=== PATIENT | female | born 1995 | race Caucasian/White ===

== ENCOUNTER 2021-09-26 13:13 | Emergency (ER) | payer OTHER, SELFPAY ==
--- NOTE | ~2021-09-26 | US_ITS ---
EXAMINATION: US OB <=14 wk fetus w TV EXAM DATE: 09/26/2021 15:36 INDICATION: Vaginal bleed in spotting 1st trimester. TECHNIQUE: Pelvic obstetrical transabdominal sonogram was performed by a technologist. There are mu ltiple grayscale and Doppler images available for interpretation. There are no earlier studies of th is gestation for comparison. FINDINGS: Uterus measures 10.8 x 6.5 x 5.6 cm, with intrauterine gestation sac identified, probable identification of a yolk sac. No pole is identified at this time. Mean sac diameter of 1.2 cm c orresponds to estimated gestational age 5 weeks 2 days. There is small subchorionic hematoma measurin g about 1.5 cm diameter by 6 mm in thickness. Right adnexa: The right ovary is normal in size and morphology. Left adnexa: The left ovary is normal in size and morphology. IMPRESSION: Early intrauterine gestation sac with small subchorionic hemorrhage. Cannot confirm viabi lity at this time. Reviewed, dictated and finalized at location [facility] IMPRESSION: Early intrauterine gestation sac with small subchorionic hemorrhage . Cannot confirm viability at this time.
[2021-09-26 13:17] VITALS: BP 151/90; PULSE 86; RESP 16; TEMP 36.1; O2SAT 100
--- NOTE | 2021-09-26 13:39 | ED.GENADULT ---
HPI - General Adult General Chief complaint: Vaginal Bleeding Stated complaint: 6 wks preg vag spotting Time Seen by Provider: 09/26/21 13:25 Source: patient and RN notes reviewed History of Present Illness HPI narrative: Patient is a 26 y/o female complaining of vaginal bleeding since yesterday. She describes it as light pink spotting. She did not notice any clots or tissue. There is no alleviating or exacerbating factor. She has no pain. She states that she is approximately 6 week and her LMP was 08/11/21. Review of Systems Constitutional: Constitutional: Denies chills, Denies fever(s), Denies headache(s) and Denies weakness Eyes: Eyes: Denies blurry vision ENT: Denies headache(s) and Denies neck pain Cardiovascular: Cardiovascular: Denies chest pain and Denies dyspnea Respiratory: Respiratory: Denies cough and Denies dyspnea Gastrointestinal: Gastrointestinal: Denies abdominal pain, Denies diarrhea, Denies nausea and Denies vomiting Genitourinary: Genitourinary: Reports abnormal vaginal bleeding, Denies hematuria and Denies dysuria Musculoskeletal: Musculoskeletal: Denies back pain and Denies neck pain Neurologic: Denies headache(s) and Denies weakness Exam Const: General: no acute distress and well developed Nutritional Appearance: obese Orientation/consciousness: oriented to person, oriented to place, oriented to time and patient oriented x3 HENMT: Head: normocephalic Ears: external ears normal General nose exam: Normal external nose present Eyes: General: appearance normal, both eyes and all related structures Conjunctivae: conjunctivae normal Neck: Neck: normal visual inspection and full ROM Chest: Chest palpation & inspection: normal inspection of the chest and no tenderness Resp: Effort & Inspection: normal respiratory effort Auscultation: clear to auscultation bilaterally Cardio: Rate: regular rate Rhythm: regular rhythm GI: GI Palp: No abdominal tenderness and Yes Soft to palpation : General: Yes bimanual renal exam normal bilaterally External Female Exam: normal external appearance Speculum Exam - Vagina: normal appearance of the vagina and No vaginal bleeding Speculum Exam - Cervix: normal appearance of the cervix Skin: General skin exam: normal color and turgor normal Neuro: General: oriented to person, oriented to place, oriented to time and patient oriented x3 Cognition (Neuro): normal cognition Extrem: General: normal to inspection, full ROM and no pedal edema Psych: Appearance: grossly normal Mental Status: mental status grossly normal Affect: normal affect Course Vital Signs Vital signs: Vital Signs Temperature 36.1 C L 09/26/21 13:17 Pulse Rate 86 09/26/21 13:17 Respiratory Rate 16 09/26/21 13:17 Blood Pressure 151/90 H 09/26/21 13:17 Pulse Oximetry 100 09/26/21 13:17 Temperature 36.1 C L 09/26/21 13:17 Pulse Rate 76 09/26/21 16:37 Respiratory Rate 18 09/26/21 16:37 Blood Pressure 132/78 09/26/21 16:37 Pulse Oximetry 99 09/26/21 16:37 Medical Decision Making Vital Signs Vital Signs: Vital Signs Temperature 36.1 C L 09/26/21 13:17 Pulse Rate 86 09/26/21 13:17 Respiratory Rate 16 09/26/21 13:17 Blood Pressure 151/90 H 09/26/21 13:17 Pulse Oximetry 100 09/26/21 13:17 Temperature 36.1 C L 09/26/21 13:17 Pulse Rate 76 09/26/21 16:37 Respiratory Rate 18 09/26/21 16:37 Blood Pressure 132/78 09/26/21 16:37 Pulse Oximetry 99 09/26/21 16:37 Lab Data Result diagrams: 09/26/21 13:38 09/26/21 13:38 Labs: Lab Results 09/26/21 09/26/21 09/26/21 Range/Units 13:38 13:38 13:38 WBC 9.4 (4.5-10.0) K/mm3 RBC 4.69 (4.2-5.4) M/mm3 Hgb 13.1 (12.0-15.0) g/dL Hct 40.3 (37.0-47.0) % MCV 85.9 (80-100) fl MCH 27.9 (26-34) pg MCHC 32.5 (32-36) g/dl RDW 14.6 H (11.5-14.5) % Plt Count 313 (150-375) k/mm3 MPV 8.7 (7.4-10.4) fl
[2021-09-26 13:49] LABS: Basophils Absolute Auto 0.1 K/mm3 (0.0-0.1); Basophils Percent Auto 0.7 % (0.2-1.2); Eosinophils Absolute Auto 0.2 K/mm3 (0-0.3); Hematocrit 40.3 % (37.0-47.0); Hemoglobin 13.1 g/dL (12.0-15.0); Immature Granulocyte Absolute 0.03 K/mm3 (0.00-0.031); Immature Granulocyte Percent A 0.3 % (0-0.5); Lymphocytes Absolute Auto 1.97 K/mm3 (0.9-3.2); Mean Corpuscular HGB Conc 32.5 g/dl (32-36); Mean Corpuscular Hemoglobin 27.9 pg (26-34); Mean Corpuscular Volume 85.9 fl (80-100); Mean Platelet Volume 8.7 fl (7.4-10.4); Monocytes Absolute Auto 0.5 K/mm3 (0.1-0.6); Monocytes Percent Auto 5.6 % (2.6-8.5); Neutrophils Absolute Auto 6.6 K/mm3 (1.3-6.7); Neutrophils Percent Auto 70.4 % (45.5-73.1); Platelet Count Result 313 k/mm3 (150-375); Red Blood Count 4.69 M/mm3 (4.2-5.4); Red Cell Distribution Width 14.6 % (11.5-14.5); White Blood Count 9.4 K/mm3 (4.5-10.0)
[2021-09-26 13:56] LABS: Add Urine Microscopic? YES; Appearance Urine Clear (Clear); Bilirubin Urine Negative (Negative); Blood Urine 2+ (Negative); Color Urine Yellow (Yellow); Glucose Urine UA Negative (Negative); Ketones Urine Negative (Negative); Leukocyte Esterase Ur 1+ LEU/UL (Negative); Mucus Urine Few /lpf; Nitrate Urine Negative (Negative); Protein Urine Negative (Negative); Squamous Epithelial Cell Urine Many /hpf (Few); Urobilinogen Urine Negative mg/dL (<2.0); WBC Urine 21-30 /hpf
[2021-09-26 14:05] LABS: Alanine Aminotransferase 17 U/L (4-35); Albumin Level 4.3 g/dL (3.5-5.1); Alkaline Phosphatase 78 U/L (38-126); Anion Gap 9 mmol/L (8-16); Aspartate Amino Transferase 22 U/L (14-36); Bilirubin,Total 0.7 mg/dL (0.2-1.3); Blood Urea Nitrogen 9 mg/dL (7-17); Calcium 9.2 mg/dL (8.4-10.2); Carbon Dioxide 27 mmol/L (22-30); Chloride 102 mmol/L (98-107); Estimated CRCL calculation 137 ml/min; Estimated Glomerular Filt Rate > 60; Glucose 91 mg/dL (65-110); Potassium 3.6 mmol/L (3.4-5.0); Sodium 138 mmol/L (137-145)
--- NOTE | 2021-09-26 14:45 | PC.NURSE ---
assisted dr Caraballo with pelvic exam
[2021-09-26 16:37] VITALS: BP 132/78; PULSE 76; RESP 18; O2SAT 99
== END 2021-09-26 16:38 | disposition home or self-care (01) ==
PROVIDERS: Emergency Provider Emergency Medicine; PCP Physician Assistant
DX: O20.0 Threatened abortion (principal); Z3A.01 Less than 8 weeks gestation of pregnancy
CPT/HCPCS: 36415; 76801; 76817; 80053; 81001; 84702; 85025; 86900; 86901; 87086; 87088; 99284

== ENCOUNTER 2021-10-03 21:59 | Emergency (ER) | payer OTHER, SELFPAY ==
[2021-10-03 22:13] VITALS: BP 164/102; PULSE 107; RESP 20; TEMP 36.2; O2SAT 98
--- NOTE | 2021-10-03 23:23 | PC.NURSE ---
Patient came to desk, stated I am leaving, I will come back in the morning. Patient informed of risks of leaving, she stated she will come back in the morning.
== END 2021-10-03 23:35 | disposition left against medical advice (07) ==
LOC: ANHED 23:25
PROVIDERS: PCP Physician Assistant
DX: O26.851 Spotting complicating pregnancy, first trimester (principal); Z3A.08 8 weeks gestation of pregnancy
CPT/HCPCS: 99199

== ENCOUNTER 2021-10-07 16:55 | Emergency (ER) | payer OTHER, SELFPAY ==
[2021-10-07 17:02] VITALS: BP 151/107; PULSE 84; RESP 16; TEMP 36.4; O2SAT 99
[2021-10-07 20:44] VITALS: BP 151/80; PULSE 93; RESP 18; TEMP 36.2; O2SAT 100
--- NOTE | 2021-10-07 22:24 | ED.GENADULT ---
HPI - General Adult General Chief complaint: Vaginal Bleeding Stated complaint: vaginal bleeding Time Seen by Provider: 10/07/21 22:15 History of Present Illness HPI narrative: Patient is a 26-year-old female presents to emergency department with chief complaint of vaginal bleeding. The patient reports she was seen in the emergency department on the after she was having some spotting and she was currently early at that time the patient had an ultrasound that documented an intrauterine and also had blood test that shows that she is Rh+. The patient states that she has been doing okay noticed today that she started passing some clots but was only a small amount and not requiring her to even use a pad. The patient states she called her OB who recommended that she come to the emergency department for evaluation. Patient denies pain. Related Data Home Medications Medication Instructions Recorded Confirmed PNV cmb#95-ferrous fumarate-FA tablet PO 10/03/21 [] escitalopram oxalate mg 10/03/21 Allergies Allergy/AdvReac Type Severity Reaction Status Date / Time Latex, Natural Rubber Allergy Rash Verified 10/07/21 22:16 Review of Systems Review of Systems: A 10 system review of systems was completed on the patient and is negative except for what is stated in the HPI. Nursing and ancillary documentation was reviewed. Exam Narrative: GENERAL: Well-appearing, well-nourished, and in no acute distress. HEAD: Normocephalic, atraumatic. EYES: PERRLA and EOMI. ENT: Nares clear, no rhinorrhea or epistaxis. Mucous membranes moist. NECK: Supple. CHEST: Clear to auscultation. No respiratory distress. HEART: Regular rate and rhythm. No murmur heard. Normal peripheral pulses. ABDOMEN: Soft, nontender, nondistended, normal active bowel sounds. EXTREMITIES: Normal range of motion. No edema. SKIN: Warm, dry, no rash. NEURO: No focal deficits. Alert and oriented x3. PSYCH: Normal mood and affect. Course Course Emergency Course: Patient has a documented intrauterine from earlier this month. At this time there is no concern for ectopic . Patient should follow-up with her primary care physician at this time emergent ultrasound is not required. Vital Signs Vital signs: Vital Signs Temperature 36.4 C L 10/07/21 17:02 Pulse Rate 84 10/07/21 17:02 Respiratory Rate 16 10/07/21 17:02 Blood Pressure 151/107 H 10/07/21 17:02 Pulse Oximetry 99 10/07/21 17:02 Temperature 36.2 C L 10/07/21 20:44 Pulse Rate 93 10/07/21 20:44 Respiratory Rate 18 10/07/21 20:44 Blood Pressure 151/80 H 10/07/21 20:44 Pulse Oximetry 100 10/07/21 20:44 Medical Decision Making Vital Signs Vital Signs: Vital Signs Temperature 36.4 C L 10/07/21 17:02 Pulse Rate 84 10/07/21 17:02 Respiratory Rate 16 10/07/21 17:02 Blood Pressure 151/107 H 10/07/21 17:02 Pulse Oximetry 99 10/07/21 17:02 Temperature 36.2 C L 10/07/21 20:44 Pulse Rate 93 10/07/21 20:44 Respiratory Rate 18 10/07/21 20:44 Blood Pressure 151/80 H 10/07/21 20:44 Pulse Oximetry 100 10/07/21 20:44 Lab Data Result diagrams: 10/07/21 22:46 10/07/21 22:46 Labs: Lab Results 10/07/21 10/07/21 Range/Units 22:46 22:46 WBC 11.3 H (4.5-10.0) K/mm3 RBC 4.80 (4.2-5.4) M/mm3 Hgb 13.2 (12.0-15.0) g/dL Hct 40.2 (37.0-47.0) % MCV 83.8 (80-100) fl MCH 27.5 (26-34) pg MCHC 32.8 (32-36) g/dl RDW 14.1 (11.5-14.5) % Plt Count 298 (150-375) k/mm3 MPV 9.0 (7.4-10.4) fl Immature Gran % (Auto) 0.3 (0-0.5) % Neut % (Auto) 62.3 (45.5-73.1) % Lymph % (Auto) 28.9 (18.3-44.2) % [place] % (Auto) 5.0 (2.6-8.5) % Eos % (Auto) 3.1 (0-4.4) % Baso % (Auto) 0.4 (0.2-1.2) % Lymph # (Auto) 3.26 H (0.9-3.2) K/mm3 [place] # (Auto) 0.6 (0.1-0.6) K/mm3 Eos # (Auto) 0.4 H (0-0.3) K/mm3 Baso # (Auto) 0.1
[2021-10-07 22:52] LABS: Basophils Absolute Auto 0.1 K/mm3 (0.0-0.1); Basophils Percent Auto 0.4 % (0.2-1.2); Eosinophils Absolute Auto 0.4 K/mm3 (0-0.3); Eosinophils Percent Auto 3.1 % (0-4.4); Hematocrit 40.2 % (37.0-47.0); Hemoglobin 13.2 g/dL (12.0-15.0); Immature Granulocyte Absolute 0.03 K/mm3 (0.00-0.031); Immature Granulocyte Percent A 0.3 % (0-0.5); Lymphocytes Absolute Auto 3.26 K/mm3 (0.9-3.2); Lymphocytes Percent Auto 28.9 % (18.3-44.2); Mean Corpuscular HGB Conc 32.8 g/dl (32-36); Mean Corpuscular Hemoglobin 27.5 pg (26-34); Mean Corpuscular Volume 83.8 fl (80-100); Monocytes Absolute Auto 0.6 K/mm3 (0.1-0.6); Neutrophils Percent Auto 62.3 % (45.5-73.1); Platelet Count Result 298 k/mm3 (150-375); Red Cell Distribution Width 14.1 % (11.5-14.5); White Blood Count 11.3 K/mm3 (4.5-10.0)
[2021-10-07 23:01] LABS: Anion Gap 9 mmol/L (8-16); Blood Urea Nitrogen 12 mg/dL (7-17); Calcium 9.6 mg/dL (8.4-10.2); Carbon Dioxide 25 mmol/L (22-30); Chloride 104 mmol/L (98-107); Estimated CRCL calculation 156 ml/min; Estimated Glomerular Filt Rate > 60; Glucose 98 mg/dL (65-110); Potassium 3.9 mmol/L (3.4-5.0); Sodium 138 mmol/L (137-145)
[2021-10-08 00:24] VITALS: BP 141/90; PULSE 96; RESP 16; O2SAT 100
== END 2021-10-08 00:25 | disposition home or self-care (01) ==
PROVIDERS: Emergency Provider Emergency Medicine; PCP Physician Assistant
DX: O20.0 Threatened abortion (principal); Z3A.00 Weeks of gestation of pregnancy not specified
CPT/HCPCS: 36415; 80048; 84702; 85025; 99283

== ENCOUNTER 2021-10-14 22:01 | Emergency (ER) | payer OTHER, SELFPAY ==
[2021-10-14 22:05] VITALS: BP 151/94; PULSE 106; RESP 18; TEMP 36.9; O2SAT 100
--- NOTE | 2021-10-14 22:24 | ED.FEMALEGU ---
HPI - Female Genitourinary General Chief complaint: [employer] Stated complaint: 10 weeks preg, per PCP tear in cervix Time Seen by Provider: 10/14/21 22:22 Source: patient Mode of arrival: ambulatory Limitations: no limitations History of Present Illness HPI Narrative: Pt is a 26yo F c/o vaginal bleeding, described as spotting, started approximate 1.5 weeks ago, here for a follow-up ultrasound. Patient was seen here for the same complaint approximately 2 weeks ago, on area 16, had an ultrasound done and showed 5 weeks intrauterine with small subchorionic bleed. Patient supposed to have an outpatient ultrasound done yesterday per [facility] [facility] but claims that the referral was never sent and consequently it was never done, so she is here to have a follow-up ultrasound. Patient denies any abdominal pain, nausea, vomiting, urinary symptoms, fever or chills. Related Data Home Medications Medication Instructions Recorded Confirmed PNV cmb#95-ferrous fumarate-FA tablet PO 10/03/21 [] escitalopram oxalate mg 10/03/21 Allergies Allergy/AdvReac Type Severity Reaction Status Date / Time Latex, Natural Rubber Allergy Rash Verified 10/07/21 22:16 Review of Systems Review of Systems: All systems reviewed & are unremarkable except as noted in HPI and below Constitutional: Constitutional: Denies body ache(s), Denies chills, Denies excessive sweating, Denies fatigue, Denies fever(s), Denies headache(s), Denies lethargy, Denies malaise, Denies weakness and Denies weight loss Eyes: Eyes: Denies blurry vision, Denies change in vision and Denies loss of vision ENT: Denies dizziness, Denies ear discharge, Denies headache(s), Denies lip swelling, Denies epistaxis, Denies nasal congestion, Denies neck pain, Denies throat swelling and Denies tongue swelling Cardiovascular: Cardiovascular: Denies chest pain, Denies chest pain at rest, Denies chest pain with activity, Denies diaphoresis, Denies rapid heart rate, Denies edema, Denies irregular heart rhythm, Denies lightheadedness, Denies palpitations, Denies dyspnea and Denies dyspnea on exertion Respiratory: Respiratory: Denies chest congestion, Denies cough, Denies hemoptysis, Denies dyspnea and Denies dyspnea on exertion Gastrointestinal: Gastrointestinal: Denies abdominal pain, Denies melena, Denies hematochezia, Denies diarrhea, Denies nausea, Denies vomiting and Denies hematemesis Musculoskeletal: Musculoskeletal: Denies abnormal gait, Denies deformity, Denies joint swelling, Denies limited range of motion, Denies neck pain and Denies numbness Neurologic: Denies Abnormal speech present, Denies abnormal gait, Denies confusion, Denies dizziness, Denies headache(s), Denies focal weakness, Denies loss of vision, Denies numbness, Denies Other visual disturbances, Denies Sensory deficit (Neuro) and Denies weakness Psychiatric: Psychiatric: Denies confusion, Denies depression, Denies auditory hallucinations, Denies homicidal ideation and Denies suicidal ideation Endocrine: Endocrine: Denies cold intolerance, Denies excessive sweating, Denies fatigue, Denies heat intolerance and Denies palpitations Hematologic/Lymphatic: Hematologic/Lymphatic: Denies easy bleeding and Denies easy bruising Allergic/Immunologic: Allergic/Immunologic: Denies lip swelling, Denies throat swelling and Denies tongue swelling PMFSH Comments Past medical history: None Family history: Noncontributory Social history: Non-smoker no EtOH or drug use Exam Const: General: cooperative, healthy appearing, comfortable, no acute distress, well developed, alert and awake; No confusion Orientation/consciousness: oriented to person, oriented to place, oriented to time, patient oriented x3 and No confusion Limitations: no limitations HENMT: Head: normal to inspection, normocephalic and atraumatic Ears: hearing grossly normal bilaterally, TM normal on the right and TM normal on the left General nose exam: Normal external nose
[2021-10-14 23:02] LABS: Basophils Absolute Auto 0.1 K/mm3 (0.0-0.1); Basophils Percent Auto 0.5 % (0.2-1.2); Eosinophils Absolute Auto 0.4 K/mm3 (0-0.3); Eosinophils Percent Auto 3.6 % (0-4.4); Hematocrit 38.1 % (37.0-47.0); Hemoglobin 12.2 g/dL (12.0-15.0); Immature Granulocyte Absolute 0.03 K/mm3 (0.00-0.031); Immature Granulocyte Percent A 0.3 % (0-0.5); Lymphocytes Absolute Auto 2.94 K/mm3 (0.9-3.2); Lymphocytes Percent Auto 26.9 % (18.3-44.2); Mean Corpuscular Hemoglobin 27.5 pg (26-34); Mean Corpuscular Volume 85.8 fl (80-100); Mean Platelet Volume 9.4 fl (7.4-10.4); Monocytes Absolute Auto 0.8 K/mm3 (0.1-0.6); Monocytes Percent Auto 6.9 % (2.6-8.5); Neutrophils Absolute Auto 6.8 K/mm3 (1.3-6.7); Neutrophils Percent Auto 61.8 % (45.5-73.1); Platelet Count Result 319 k/mm3 (150-375); Red Blood Count 4.44 M/mm3 (4.2-5.4); Red Cell Distribution Width 14.4 % (11.5-14.5); White Blood Count 10.9 K/mm3 (4.5-10.0)
[2021-10-14 23:08] LABS: Alanine Aminotransferase 23 U/L (4-35); Albumin Level 4.3 g/dL (3.5-5.1); Alkaline Phosphatase 70 U/L (38-126); Anion Gap 9 mmol/L (8-16); Aspartate Amino Transferase 26 U/L (14-36); Bilirubin,Total 0.5 mg/dL (0.2-1.3); Blood Urea Nitrogen 15 mg/dL (7-17); Calcium 9.3 mg/dL (8.4-10.2); Carbon Dioxide 25 mmol/L (22-30); Chloride 106 mmol/L (98-107); Estimated CRCL calculation 142 ml/min; Estimated Glomerular Filt Rate > 60; Glucose 97 mg/dL (65-110); Potassium 3.7 mmol/L (3.4-5.0); Sodium 140 mmol/L (137-145)
[2021-10-14 23:11] LABS: Add Urine Microscopic? YES; Appearance Urine Clear (Clear); Bilirubin Urine Negative (Negative); Blood Urine 1+ (Negative); Color Urine Yellow (Yellow); Glucose Urine UA Negative (Negative); Ketones Urine Negative (Negative); Leukocyte Esterase Ur Negative LEU/UL (Negative); Mucus Urine Rare /lpf; Nitrate Urine Negative (Negative); Protein Urine Negative (Negative); Specific Grav Ur 1.025 (1.001-1.035); Squamous Epithelial Cell Urine Occasional /hpf (Few); Urobilinogen Urine Negative mg/dL (<2.0); WBC Urine 0-3 /hpf
[2021-10-14 23:24] LABS: Beta HCG Quantitative 152.31 mIU/ML
[2021-10-14] MEDS: SODIUM CHLORIDE 0.9% IV 1,000 ML 999 ML IV CONT (23:29)
[2021-10-15 00:55] VITALS: BP 148/78; PULSE 92; RESP 16; TEMP 36.8; O2SAT 98
== END 2021-10-15 00:56 | disposition home or self-care (01) ==
PROVIDERS: Emergency Medicine; Emergency Provider Emergency Medicine; PCP Physician Assistant
DX: O03.9 Complete or unspecified spontaneous abortion without complication (principal)
CPT/HCPCS: 36415; 80053; 81001; 84702; 85025; 96360; 99283; J7030

== ENCOUNTER 2022-11-07 18:18 | Observation (INO) | payer OTHER, SELFPAY ==
[2022-11-07 18:27] VITALS: BP 145/84; PULSE 120; RESP 18; TEMP 36.6; O2SAT 100
[2022-11-07 18:42] LABS: Hematocrit 36.5 % (37.0-47.0); Hemoglobin 12.3 g/dL (12.0-15.0); Mean Corpuscular HGB Conc 33.7 g/dl (32-36); Mean Corpuscular Hemoglobin 29.6 pg (26-34); Mean Corpuscular Volume 87.7 fl (80-100); Mean Platelet Volume 9.1 fl (7.4-10.4); Platelet Count Result 309 k/mm3 (150-375); Red Blood Count 4.16 M/mm3 (4.2-5.4); Red Cell Distribution Width 15.2 % (11.5-14.5); White Blood Count 17.7 K/mm3 (4.5-10.0)
[2022-11-07 18:55] LABS: Alanine Aminotransferase 121 U/L (6-35); Alkaline Phosphatase 157 U/L (38-126); Anion Gap 10 mmol/L (8-16); Aspartate Amino Transferase 81 U/L (14-36); Bilirubin,Total 2.2 mg/dL (0.2-1.3); Blood Urea Nitrogen 9 mg/dL (7-17); Carbon Dioxide 20 mmol/L (22-30); Chloride 108 mmol/L (98-107); Estimated CRCL calculation 172 ml/min; Estimated Glomerular Filt Rate > 60; Glucose 101 mg/dL (65-110); Lipase 69 U/L (23-300); Potassium 3.8 mmol/L (3.4-5.0); Sodium 138 mmol/L (137-145)
[2022-11-07 19:12] LABS: Band Neutrophils Percent 5 % (0-6); Eosinophils Absolute Manual 0.17 K/mm3 (0.02-0.5); Eosinophils Percent Manual 1 % (0-4); Lymphocytes Absolute Manual 0.53 K/mm3 (1.1-4.5); Monocytes Absolute Manual 0.35 K/mm3 (0.1-0.90); Monocytes Percent Manual 2 % (3-9); Neutrophils Absolute Manual 16.63 K/mm3 (1.7-7.2); Neutrophils Percent Manual 89 % (46-73); Total Cells Counted 100
[2022-11-07 19:13] LABS: Anisocytosis 2+ (NORMAL); Platelet Estimate Adequate (Adequate); Schistocytes None Seen (NORMAL)
[2022-11-07 19:18] LABS: Appearance Urine Clear (Clear); Bacteria Urine None Seen /hpf; Bilirubin Urine 2+ (Negative); Blood Urine Negative (Negative); Color Urine Dark Yellow (Yellow); Glucose Urine UA Negative (Negative); Ketones Urine 3+ mg/dL (Negative); Leukocyte Esterase Ur 1+ LEU/UL (Negative); Need Manual Microscopic Reviewed; Nitrate Urine Positive (Negative); Non Pathogenic Casts 0-2; Protein Urine 1+ mg/dL (Negative); RBC Urine 0-2 /hpf (0-2); Specific Grav Ur 1.026 (1.001-1.035); Squamous Epithelial Cell Urine Moderate /hpf (Few); WBC Urine 0-5 /hpf; pH Urine 5.5 (5.0-9.0)
[2022-11-07 19:24] LABS: Add Urine Microscopic? YES
--- NOTE | 2022-11-07 19:49 | PC.NURSE ---
ambulated the pt to room, where she stated, I am 7 months , and I'm having lower abd pain pointed below the umbilicus. pt also reported being a high risk , sees providers at [facility]. came to this facility as her uncle was having his knee checked out. call to OB, PT TO BE TAKEN THERE
--- NOTE | 2022-11-07 20:15 | PC.NURSE ---
Pt. wheeled to Room and given gown and belly band to dress in. Pt given call light to use when she was ready. Pt reports low pelvic pressure with vomiting and movement. Pt reports she is a and is a high Risk [place] patient due to multiple miscarriages and HTN.
--- NOTE | 2022-11-07 20:25 | PC.NURSE ---
Pt was told to use call light when she was dressed and ready. After about 10 minutes patient had not called out. I went to check on patient and she states she did not want to be seen and wanted to leave. I discussed with patient that this would mean she is leaving AMA. I discussed with patient and friend of abnormal labs and other labs that are pending results. Pt continued to decline staying. Left room to get AMA paperwork
[2022-11-07 20:30] LABS: Creatinine Urine 274.3 mg/dL; Total Protein Urine Random 11 mg/dL; Ur Ttl Prot Creatinine Ratio 0.04 mg/mg (0-0.20)
--- NOTE | 2022-11-07 20:30 | PC.NURSE ---
Offered patient to be placed on monitor to check if she is contraction and for FHR. Pt declined stating the ER check FHR and it was fine. Furthered discussed the benefits of being placed on the monitor for contractions as well as longer assessment of baby's HR. Pt declined. Risks discussed with patient leaving including , seizures, untreated infection, . Pt reports she is going to be seen by her provider first thing in the morning. Pt reports she feels safe to go home. Pt signed AMA paperwork and was ambulatory to exit with her belongings.
[2022-11-07 21:48] LABS: Uric Acid 5.1 mg/dL (2.5-7.5)
--- NOTE | 2022-11-28 10:40 | PM.OBTRLD ---
OB - Triage/Final Diagnosis Visit Information Comments/Additional reasons for admission: I have assessed the risk for this patient, Imelda Lomax, and determined that she would benefit from observation care. Evaluation Laboratory results: Laboratory Tests 11/07/22 11/07/22 11/07/22 18:36 18:36 18:36 WBC 17.7 H RBC 4.16 L Hgb 12.3 Hct 36.5 L MCV 87.7 MCH 29.6 MCHC 33.7 RDW 15.2 H Plt Count 309 MPV 9.1 Immature Gran % (Auto) Not Reportable Neut % (Auto) Not Reportable Lymph % (Auto) Not Reportable [place] % (Auto) Not Reportable Eos % (Auto) Not Reportable Baso % (Auto) Not Reportable Lymph # (Auto) Not Reportable [place] # (Auto) Not Reportable Eos # (Auto) Not Reportable Baso # (Auto) Not Reportable Abs Immat Gran (auto) Not Reportable Absolute Neuts (auto) Not Reportable Absolute Nucleated RBC Not Reportable Total Counted 100 Neutrophils % (Manual) 89 H Band Neutrophils % 5 Lymphocytes % (Manual) 3.0 L Monocytes % (Manual) 2 L Eosinophils % (Manual) 1 Nucleated RBC % Not Reportable Abs Neuts (Manual) 16.63 H Abs Lymphs (Manual) 0.53 L Abs Monocytes (Manual) 0.35 Absolute Eos (Manual) 0.17 Platelet Estimate Adequate Anisocytosis 2+ Schistocytes None seen Sodium 138 Potassium 3.8 Chloride 108 H Carbon Dioxide 20 L Anion Gap 10 BUN 9 D Creatinine 0.60 L Estim Creat Clear Calc 172 Estimated GFR > 60 Glucose 101 Uric Acid 5.1 Calcium 9.0 Total Bilirubin 2.2 H AST 81 H ALT 121 H Alkaline Phosphatase 157 H Total Protein 8.0 Albumin 4.0 Lipase 69 Urine Color Urine Appearance Urine pH Ur Specific [place] Urine Protein Urine Glucose (UA) Urine Ketones Ur Blood (Man) Urine Nitrate Urine Bilirubin Urine Urobilinogen Add Ur Microanalysis Leukocyte Esterase Rfl Urine RBC Urine WBC Ur Squamous Epith Cells Urine Bacteria Urine Casts U Random Total Protein Urine Creatinine Protein/Creat Ratio 2 11/07/22 11/07/22 18:42 18:42 WBC RBC Hgb Hct MCV MCH MCHC RDW Plt Count MPV Immature Gran % (Auto) Neut % (Auto) Lymph % (Auto) [place] % (Auto) Eos % (Auto) Baso % (Auto) Lymph # (Auto) [place] # (Auto) Eos # (Auto) Baso # (Auto) Abs Immat Gran (auto) Absolute Neuts (auto) Absolute Nucleated RBC Total Counted Neutrophils % (Manual) Band Neutrophils % Lymphocytes % (Manual) Monocytes % (Manual) Eosinophils % (Manual) Nucleated RBC % Abs Neuts (Manual) Abs Lymphs (Manual) Abs Monocytes (Manual) Absolute Eos (Manual) Platelet Estimate Anisocytosis Schistocytes Sodium Potassium Chloride Carbon Dioxide Anion Gap BUN Creatinine Estim Creat Clear Calc Estimated GFR Glucose Uric Acid Calcium Total Bilirubin AST ALT Alkaline Phosphatase Total Protein Albumin Lipase Urine Color Dark yellow Urine Appearance Clear Urine pH 5.5 Ur Specific [place] 1.026 Urine Protein 1+ H Urine Glucose (UA) Negative Urine Ketones 3+ H Ur Blood (Man) Negative Urine Nitrate Positive H Urine Bilirubin 2+ H Urine Urobilinogen 1.0 Add Ur Microanalysis Reviewed Leukocyte Esterase Rfl 1+ H Urine RBC 0-2 Urine WBC 0-5 Ur Squamous Epith Cells Moderate Urine Bacteria None seen Urine Casts 0-2 U Random Total Protein 11 Urine Creatinine 274.3 Protein/Creat Ratio 2 0.04 Final Diagnosis (1) Left against medical advice: Code(s): Z53.29 - Procedure and treatment not carried out because of patient's decision for other reasons Status: Acute
== END 2022-11-07 20:30 | disposition left against medical advice (07) ==
LOC: ANHED 19:50 → ANHOBPP 11-16 06:24
PROVIDERS: Advanced Practice Midwife; Emergency Medicine; Admitting Provider Obstetrics & Gynecology; Visit Provider Obstetrics & Gynecology
DX: O21.8 Other vomiting complicating pregnancy (principal); Z3A.00 Weeks of gestation of pregnancy not specified; Z53.29 Procedure and treatment not carried out because of patient's decision for other reasons
CPT/HCPCS: 36415; 80053; 81001; 82570; 83690; 84156; 84550; 85025

== ENCOUNTER 2023-10-18 16:00 | Emergency (ER) | payer OTHER, SELFPAY ==
[2023-10-18 16:12] VITALS: BP 164/97; PULSE 97; RESP 14; TEMP 36.3; O2SAT 99
--- NOTE | 2023-10-18 19:23 | ED.GENADULT ---
HPI - General Adult General Chief complaint: Recheck/Abnormal Lab/Rx Stated complaint: test Time Seen by Provider: 10/18/23 18:07 Source: patient Mode of arrival: ambulatory Limitations: no limitations History of Present Illness HPI narrative: Patient is a 28 y/o female who presents to the ED with c/o irregular cycles. Patient reports she has not had a normal menstrual cycle since July of last year. She was switched from Nexplanon to Depo shot at that time. Her Depo was due to be re-dosed in September, but patient did not receive this. She states she has been on Depo in the past and still had cycles. She is concerned she may be . She does have 1 child. She has taken 4 tests at home which have been negative. She would like a blood test. Patient denies any abdominal pain, nausea, vomiting, breast tenderness, fevers. Patient states she does not currently have an mailmaster, however per records, she was seen with [facility] [place] last year. Related Data Home Medications Medication Instructions Recorded Confirmed escitalopram oxalate 10 mg tablet mg 10/03/21 vit no.95-ferrous tablet PO 10/03/21 fumarate 28 mg-folic acid 800 mcg tablet () Allergies Allergy/AdvReac Type Severity Reaction Status Date / Time Latex, Natural Rubber Allergy Rash Verified 10/07/21 22:16 Review of Systems Review of Systems: CONSTITUTIONAL: Denies fever, chills, or sweats. GASTROINTESTINAL: Denies abdominal pain, nausea, vomiting, or diarrhea. GENITOURINARY: See HPI. All systems reviewed & are unremarkable except as noted in HPI and below Exam Narrative: GENERAL: Well appearing, morbidly obese with BMI 44.5, non-toxic, in no acute distress. HEAD: Normocephalic, atraumatic. RESPIRATORY: Airway patent, respirations nonlabored. CARDIOVASCULAR: Regular rate and rhythm. ABDOMINAL: Soft, nontender, nondistended. Normoactive BS. MUSCULOSKELETAL: No gross deformities. SKIN: Warm, dry, normal color. NEURO: A&O X3. Speech clear. PSYCHIATRIC: Appropriate mood and affect. Normal interaction. Course Vital Signs Vital signs: Vital Signs Temperature 97.3 F L 10/18/23 16:12 Pulse Rate 97 10/18/23 16:12 Respiratory Rate 14 10/18/23 16:12 Blood Pressure 164/97 H 10/18/23 16:12 Pulse Oximetry 99 10/18/23 16:12 Oxygen Delivery Room Air 10/18/23 16:12 Temperature 97.3 F L 10/18/23 16:12 Pulse Rate 97 10/18/23 16:12 Respiratory Rate 14 10/18/23 16:12 Blood Pressure 164/97 H 10/18/23 16:12 Pulse Oximetry 99 10/18/23 16:12 Oxygen Delivery Room Air 10/18/23 16:12 Medical Decision Making MDM Narrative Medical decision making narrative: Patient presenting with several month hx of irregular cycles, concerned for . Urine test here is negative. Patient requesting blood test. Beta quant negative. Patient advised to follow-up with OBGYN for further evaluation. She does not have any abdominal pain or symptoms otherwise to suggest need for further labs or imaging at this time. Given return precautions. D/C in stable condition. Medical Records Medical records reviewed: Yes I reviewed the external patient's medical records. Vital Signs Vital Signs: Vital Signs Temperature 97.3 F L 10/18/23 16:12 Pulse Rate 97 10/18/23 16:12 Respiratory Rate 14 10/18/23 16:12 Blood Pressure 164/97 H 10/18/23 16:12 Pulse Oximetry 99 10/18/23 16:12 Oxygen Delivery Room Air 10/18/23 16:12 Temperature 97.3 F L 10/18/23 16:12 Pulse Rate 97 10/18/23 16:12 Respiratory Rate 14 10/18/23 16:12 Blood Pressure 164/97 H 10/18/23 16:12 Pulse Oximetry 99 10/18/23 16:12 Oxygen Delivery Room Air 10/18/23 16:12 Lab Data Lab results reviewed: Yes I reviewed the patient's lab results. Labs: Lab Results 10/18/23 Range/Units 19:26 Beta HCG, Quant < 2.39 mIU/ML UCG Bedside Result
[2023-10-18 20:01] LABS: Beta HCG Quantitative < 2.39 mIU/ML
== END 2023-10-18 20:18 | disposition home or self-care (01) ==
PROVIDERS: Emergency Provider Physician Assistant
DX: N93.9 Abnormal uterine and vaginal bleeding, unspecified (principal)
CPT/HCPCS: 36415; 81025; 84702; 99283

== ENCOUNTER 2024-05-19 12:55 | Emergency (ER) | payer BC, OTHER, SELFPAY ==
--- NOTE | ~2024-05-19 | US_ITS ---
US soft tissue UE RT DATE: 05/19/2024 15:18 INDICATION: Dorsal right wrist mass TECHNIQUE: Real time imaging of dorsal right wrist COMPARISON: None FINDINGS: There is a lobular complicated cyst with through transmission and posterior enhancement at the area of clinical complaint. There is a deeper approximately 7 x 9 mm component, communicating w ith a larger superficial component measuring up to 5 x 16 x 16 mm. IMPRESSION: Large dorsal ganglion cyst Reviewed, dictated and finalized at [facility]. Reviewed, dictated and finalized at [facility]. IMPRESSION: Large dorsal ganglion cyst
[2024-05-19 12:55] VITALS: BP 149/87; PULSE 88; RESP 17; TEMP 36.6; O2SAT 100
--- NOTE | 2024-05-19 14:07 | ED.UPPEXIN ---
HPI - Extremity Injury (Upper) General Chief Complaint: Extremity Injury, Upper Stated Complaint: lump on right hand Time Seen by Provider: 05/19/24 14:07 Source: patient Mode of arrival: ambulatory Limitations: no limitations History of Present Illness HPI narrative: Patient presents with complaint of a lump on the dorsum of her right hand that has been present for 3 months. She is right-hand dominant. She experiences intermittent pain with it as well as intermittent paresthesias in her bilateral hands although right greater than left. States that it feels like they are asleep almost like I sat on them at times. She denies any injury or repetitive movements. She notes that it has increased in size since it was 1st appreciated. Related Data Home Medications Medication Instructions Recorded Confirmed escitalopram oxalate 10 mg tablet mg 10/03/21 vit no.95-ferrous tablet PO 10/03/21 fumarate 28 mg-folic acid 800 mcg tablet () Allergies Allergy/AdvReac Type Severity Reaction Status Date / Time Latex, Natural Rubber Allergy Rash Verified 05/19/24 12:57 [facility] Past Medical History Medical History (Updated 05/20/24 @ 06:03 by Lissy Whitaker MD) Right hand dominant Social History Social History Social History: Living arrangements: with family Additional living arrangements comments: Exam Narrative: GENERAL: Well-appearing, well-nourished, and in no acute distress. HEAD: Normocephalic, atraumatic. EYES: Non injected, non icteric. Grossly symmetric pupils. Xanthelasma medial aspect bilateral eyes. ENT: Nares clear, no rhinorrhea or epistaxis. NECK: Supple. CHEST: Speaking in full sentences. No respiratory distress. Strong palpable radial pulse in right upper extremity. HEART: Regular rate and rhythm. . ABDOMEN: Soft, nondistended. Morbid obesity. EXTREMITIES: Normal range of motion. No lower extremity edema. Slightly firm but not indurated mass along dorsum of right hand along the radial aspect. Slightly mobile. Does not feel rubbery. SKIN: Warm, dry, no rash. NEURO: No focal deficits. Alert and oriented x3. PSYCH: Normal mood and affect. Course Vital Signs Vital signs: Vital Signs Temperature 97.9 F 05/19/24 12:55 Pulse Rate 88 05/19/24 12:55 Respiratory Rate 17 05/19/24 12:55 Blood Pressure 149/87 H 05/19/24 12:55 Pulse Oximetry 100 05/19/24 12:55 Oxygen Delivery Room Air 05/19/24 12:55 Temperature 98.4 F 05/19/24 17:18 Pulse Rate 78 05/19/24 17:18 Respiratory Rate 18 05/19/24 17:18 Blood Pressure 143/88 H 05/19/24 17:18 Pulse Oximetry 100 05/19/24 17:18 Oxygen Delivery Room Air 05/19/24 12:55 MDM - Extremity Injury (Upper) MDM Narrative Medical decision making narrative: Patient is a right hand dominant female that presents with a lump on the dorsum of her right hand presents for the past 3 months. In the emergency department she is afebrile with vital signs notable for hypertension. This has the appearance of a ganglion cyst. Typically these aren't painful so ultrasound obtained for further characterization and, given hasn't spontaneously resolved. This does demonstrate ganglion cyst and dimensions provided. Advised patient trial conservative therapy first but also provided referral information for plastic surgery/hand surgeon Dr Tracey if she would want to proceed with consultation in the future given pain / cosmetic effect / functional change. Discharged with prescription for NSAID. Differential Diagnosis Differential diagnosis: Likely other (Ganglion cyst, lipoma, seroma, ) Imaging Data Radiologist's impression: There is a lobular complicated cyst with through transmission and posterior enhancement at the area of clinical complaint. There is a deeper approximately 7 x 9 mm component, communicating with a larger superfic
[2024-05-19 14:10] VITALS: BP 130/83; PULSE 91; RESP 19; O2SAT 100
[2024-05-19] MEDS: KETOROLAC 30 MG/ML VIAL (*BKC) 15 MG IM (17:12)
[2024-05-19 17:18] VITALS: BP 143/88; PULSE 78; RESP 18; TEMP 36.9; O2SAT 100
== END 2024-05-19 17:19 | disposition home or self-care (01) ==
PROVIDERS: Emergency Provider Student in an Organized Health Care Education/Training Program
DX: M67.431 Ganglion, right wrist (principal); H02.66 Xanthelasma of left eye, unspecified eyelid; H02.63 Xanthelasma of right eye, unspecified eyelid
CPT/HCPCS: 76882; 96372; 99284; J1885

== ENCOUNTER 2024-07-09 17:54 | Emergency (ER) | payer BC, OTHER, SELFPAY ==
--- NOTE | ~2024-07-09 | US_ITS ---
EXAMINATION: US OB <=14 wk fetus w TV INDICATION: vaginal bleeding TECHNIQUE: Sonography of the pelvis was performed by transabdominal and transvaginal techniques. COMPARISON: None. RESULT: Uterus: 10.6 x 5.1 x 6.2 cm. Anteverted. Homogenous myometrium. Intrauterine gestational sac: Single present. Mean Sac Diameter: 2.4 cm, corresponding gestational age 7 week 3 days. Yolk sac: 0.2 cm . Embryo: Single present. [place] rump length: 0.87 cm, corresponding gestational age 6 weeks, 6 days. Gestational heart rate: present 142 bpm. Subgestational hematoma: Absent . Right ovary: 2.9 x 1.1 x 2.1 cm. Vascular flow is present. No adnexal mass. Left ovary: 3.1 x 2.6 x 2.4 cm. Vascular flow is present. No adnexal mass. Pelvis free fluid: IMPRESSION: Single, live intrauterine gestation. Estimated Gestational Age: 6 weeks, 6 days by crown rump length. YAS by ultrasound 02/26/2025. Reviewed, dictated and finalized at [facility]. IMPRESSION: Single, live intrauterine gestation. Estimated Gestational Age: 6 weeks, 6 days by crown rump length. YAS by ultras ound 02/26/2025.
[2024-07-09 17:58] VITALS: BP 138/84; PULSE 96; RESP 16; TEMP 36.6; O2SAT 99
--- NOTE | 2024-07-09 18:11 | ED.PREGNANCY ---
HPI - General Chief complaint: Vaginal Bleeding <Nancy Schuler [employer] - Last Filed: 07/09/24 18:14> Stated complaint: 5 weeks preg, spotting <Nancy Schuler [employer] - Last Filed: 07/09/24 18:14> Time Seen by Provider: 07/09/24 18:05 <Nancy Schuler [employer] - Last Filed: 07/09/24 18:14> Focused HPI: patient is a 29-year-old female who presents to the ER with concerns of vomiting during . She reports she went to [place] approximately 1 week ago and they told her she was 5 weeks and 1 day. Patient reports she has notice vaginal spotting with pink discharge. She denies any abdominal pain and reports her last approximately 1 year ago. Patient has a history 8 miscarriages and 4 live pregnancies. Patient reports during her last she had high blood pressure. She reports she is a high-risk due to the need for Lamictal during her pregnancies. GENERAL: Well-appearing, well-nourished, and in no acute distress. HEAD: Normocephalic, atraumatic. CHEST: Clear to auscultation. ?No respiratory distress. HEART: Regular rate and rhythm.? NEURO: ?Alert and oriented x3. Patient screened in triage and initial orders placed.? ?Additional care and disposition to be based upon?diagnostic testing and treatment. <Nancy Schuler [employer] - Last Filed: 07/09/24 18:14> Focused HPI: patient is a 29-year-old female who presents to the ER with concerns of spotting during . She reports she went to [place] approximately 1 week ago and they told her she was 5 weeks and 1 day. Patient reports she has notice vaginal spotting with pink discharge. She denies any abdominal pain and reports her last approximately 1 year ago. Patient has a history 8 miscarriages and 4 live pregnancies. Patient reports during her last she had high blood pressure. She reports she is a high-risk due to the need for Lamictal during her pregnancies. GENERAL: Well-appearing, well-nourished, and in no acute distress. HEAD: Normocephalic, atraumatic. CHEST: Clear to auscultation. ?No respiratory distress. HEART: Regular rate and rhythm.? NEURO: ?Alert and oriented x3. Patient screened in triage and initial orders placed.? ?Additional care and disposition to be based upon?diagnostic testing and treatment. <Alissa Longoria PA-C - Last Filed: 07/09/24 23:31> Related Data Home medications: Home Medications Medication Instructions Recorded Confirmed escitalopram oxalate 10 mg tablet mg 10/03/21 vit no.95-ferrous tablet PO 10/03/21 fumarate 28 mg-folic acid 800 mcg tablet () <Nancy Schuler, [employer] - Last Filed: 07/09/24 18:14> Allergies/Adverse reactions: Allergies Allergy/AdvReac Type Severity Reaction Status Date / Time Latex, Natural Rubber Allergy Rash Verified 06/25/24 15:29 <Nancy Schuler APRN - Last Filed: 07/09/24 18:14> Review of Systems Review of Systems: CONSTITUTIONAL: Denies fever GASTROINTESTINAL: Denies abdominal pain, nausea, vomiting GENITOURINARY: Denies dysuria <Alissa Longoria PA-C - Last Filed: 07/09/24 23:31> All systems reviewed & are unremarkable except as noted in HPI and below <Alissa Longoria PA-C - Last Filed: 07/09/24 23:31> PMFSH Past Medical History Medical History: Medical History (Updated 07/09/24 @ 23:30 by Alissa Longoria PA-C) History of migraine Right hand dominant <Nancy Schuler APRN - Last Filed: 07/09/24 18:14> Social History Social History: Social History (Updated 06/25/24 @ 15:29 by Lolly Gonzalez MA) Social History: Smoking status: Never smoker Living arrangements: with family Additional living arrangements comments: <Nancy Schuler APRN - Last Filed: 07/09/24 18:14> Exam Narrative: GENERAL: Well-appearing, well-nourished, and in no acute distress. HEAD: Normocephalic, atraumatic. EYES: EOMI. CHEST: Clear to auscultation. No respiratory distress. No wheezes rales or rhonchi HEART: Regular rate and rhythm. No murmur heard. Normal peripheral pulses. ABDOMEN: Soft, nontender, nondistended, normal active bowel sounds. EXTREMITIES: Normal range of motion. No edema. SKIN: Warm, dry, no rash. NEURO: No focal deficits. Alert and oriented x3. PSYCH: Normal mood and affect <Alissa Longoria PA-C - Last Filed: 07/09/24 23:31> Course Course Emergency Course: Patient updated on her workup and agrees with plan of care <Alissa Longoria PA-C - Last Filed: 07/09/24 23:31> Vital Signs Vital signs: Vital Signs Temperature 97.9 F 07/09/24 17:58 Pulse Rate 96 07/09/24 17:58 Respiratory Rate 16 07/09/24 17:58 Blood Pressure 138/84 07/09/24 17:58 Pulse Oximetry 99 07/09/24 17:58 Oxygen Delivery Room Air 07/09/24 17:58 Temperature 97.9 F 07/09/24 22:22 Pulse Rate 79 07/09/24 22:22 Respiratory Rate 15 07/09/24 22:22 Blood Pressure 135/70 07/09/24 22:22 Pulse Oximetry 98 07/09/24 22:22 Oxygen Delivery Room Air 07/09/24 22:22 <Nancy Schuler APRN - Last Filed: 07/09/24 18:14> Vital Signs Temperature 97.9 F 07/09/24 17:58 Pulse Rate 96 07/09/24 17:58 Respiratory Rate 16 07/09/24 17:58 Blood Pressure 138/84 07/09/24 17:58 Pulse Oximetry 99 07/09/24 17:58 Oxygen Delivery Room Air 07/09/24 17:58 Temperature 97.9 F 07/09/24 22:22 Pulse Rate 79 07/09/24 22:22 Respiratory Rate 15 07/09/24 22:22 Blood Pressure 135/70 07/09/24 22:22 Pulse Oximetry 98 07/09/24 22:22 Oxygen Delivery Room Air 07/09/24 22:22 <ARCENIO Hines Last Filed: 07/09/24 23:31> MDM - OB/Uterine Contractions MDM Narrative Medical decision making narrative: Patient presents the emergency department for vaginal spotting in early . Her vitals are stable. Quantitative beta hCG 55,945. Ob ultrasound shows single live intrauterine gestation. Six weeks and 6 days. She is A positive. Patient was updated on her workup. Instructed to have further follow-up with OB. Reports she will be following with a doctor at [place]. She was given warnings to return to the ER <Alissa Longoria PA-C - Last Filed: 07/09/24 23:31> Differential Diagnosis Differential diagnosis: Likely other (Threatened miscarriage, miscarriage, subchorionic hemorrhage) <Alissa Longoria PA-C - Last Filed: 07/09/24 23:31> Lab Data Attestation: I reviewed the patient's lab results. <Alissa Longoria PA-C - Last Filed: 07/09/24 23:31> Labs: Lab Results 07/09/24 Range/Units 18:16 Beta HCG, Quant 10284.00 mIU/ML <Nancy Schuler APRN - Last Filed: 07/09/24 18:14> Lab Results 07/09/24 Range/Units 18:16 Beta HCG, Quant 26313.00 mIU/ML <Alissa Longoria PA-C - Last Filed: 07/09/24 23:31> Imaging Data Radiologist's impression: ITS Impressions Obstetrics Ultrasound 07/09/24 21:23 IMPRESSION: Single, live intrauterine gestation. Estimated Gestational Age: 6 weeks, 6 days by crown rump length. YAS by ultrasound 02/26/2025. <Alissa Longoria PA-C - Last Filed: 07/09/24 23:31> Critical Care Time Critical Care Time Critical Care Time: No <ARCENIO Hines Last Filed: 07/09/24 23:31> Discharge Plan Discharge Clinical Impression: Bleeding in early <Nancy Schuler APRN - Last Filed: 07/09/24 18:14> Patient Disposition: Home, Self-Care <Nancy Schuler APRN - Last Filed: 07/09/24 18:14> Condition: Stable <Nancy Schuler APRN - Last Filed: 07/09/24 18:14> Instructions: Threatened Miscarriage (ED) <Nancy Schuler APRN - Last Filed: 07/09/24 18:14> Additional Instructions: Return to the ER if you experience fever, chest pain, shortness of breath, abdominal pain with nausea and vomiting, you are unable to keep down liquids or solids, pelvic cramping, worsening vaginal bleeding, or any other symptoms that are concerning to you Remain well hydrated. vitamin daily. Pelvic rest, no tampons or sex Follow up with your OB <Nancy Schuler APRN - Last Filed: 07/09/24 18:14> Prescriptions: No Action escitalopram oxalate 10 mg tablet PNV cmb#95-ferrous fumarate-FA [] 28 mg iron- 800 mcg tablet PO ibuprofen 600 mg tablet 600 mg PO TID PRN (Reason: pain) Qty: 30 0RF <Nancy Schuler APRN - Last Filed: 07/09/24 18:14> Follow-up/Referrals: PHYSICIAN,LOG RAFT WORKER [Non-Staff] - <Nancy Schuler APRN - Last Filed: 07/09/24 18:14>
[2024-07-09 20:31] VITALS: BP 147/77; PULSE 86; RESP 16; TEMP 36.4; O2SAT 100
[2024-07-09 22:22] VITALS: BP 135/70; PULSE 79; RESP 15; TEMP 36.6; O2SAT 98
== END 2024-07-09 23:40 | disposition home or self-care (01) ==
PROVIDERS: Registered Nurse; Emergency Provider Physician Assistant
DX: O20.9 Hemorrhage in early pregnancy, unspecified (principal); Z3A.01 Less than 8 weeks gestation of pregnancy
CPT/HCPCS: 36415; 76801; 76817; 84702; 99284